=== PATIENT | male | born 1940 | race Hispanic/Latino ===

== ENCOUNTER 2018-10-12 10:38 | Emergency (ER) | payer MEDICARE ==
--- NOTE | 2018-10-12 11:21 | C.PDOC ---
History Of Present Illness Patient is a 78 year old male with PMHx of carpal tunnel disease, HLD, and arthritis here for right leg pain. Patient fell onto his hands about 1 week ago when getting into a cab. Patient believes he tripped over something and denies hitting his head or any loss of consciousness. Patient did not have any leg pain until a few days after the fall when the back of his right leg started to hurt. Patient rates the pain 20/10. Patient takes Oxycodone 20mg q4h which is prescribed by his orthopedic surgeon, Dr. Rogel, for his chronic knee pain. Patient is to get bilateral knee replacements in the future. Patient says the pain in the back of his leg is constant. Patient has tried using a heating pad on the area which helps a little. Time Seen by Provider: 10/12/18 11:05 Chief Complaint (Nursing): Lower Extremity Problem/Injury History/Exam Limitations: no limitations Onset/Duration Of Symptoms: Days, Persistent Current Symptoms Are (Timing): Still Present Severity: Severe Pain Scale Rating Of: 10 - Hip Description Of Injury: Fell, Tripped Currently Unable To: Bear Weight, Straighten, Bend Or Move Past Medical History Vital Signs: Last Vital Signs Temp 98 F 10/12/18 10:49 Pulse 73 10/12/18 10:49 Resp 19 10/12/18 10:49 BP 172/85 H 10/12/18 10:49 Pulse Ox 99 10/12/18 10:49 - Medical History PMH: Arthritis, Hypercholesterolemia Other PMH: carpal tunnel Other Surgeries: left knee surgery 1988 Family History: States: Unknown Family Hx - Social History Hx Tobacco Use: No Hx Alcohol Use: No Hx Substance Use: No - Immunization History Hx Tetanus Toxoid Vaccination: No Hx Influenza Vaccination: No Hx Pneumococcal Vaccination: No Review Of Systems Musculoskeletal: Positive for: Leg Pain Skin: Negative for: Lesions, Bruising Neurological: Positive for: Confusion, Headache, Dizziness Physical Exam - Physical Exam Appears: Non-toxic Head: Atraumatic, Normacephalic Cardiovascular: Rhythm Regular Respiratory: Normal Breath Sounds Gastrointestinal/Abdominal: Normal Exam, Bowel Sounds, Soft, Tenderness Extremity: Tenderness (right back of thigh tenderness ), No Pedal Edema Neurological/Psych: Oriented x3 ED Course And Treatment O2 Sat by Pulse Oximetry: 99 Disposition - Disposition Referrals: Jose Noe MD [Medical Doctor] - Disposition: HOME/ ROUTINE Disposition Time: 11:40 Condition: FAIR Additional Instructions: [place], thank you for letting us take care of you today. Your provider was ED Physician and you were treated for FALL/LEG PAIN. The emergency medical care you received today was directed at your acute symptoms. It may take several days for your symptoms to resolve. Return to the Emergency Department if your symptoms worsen, do not improve, or if you have any other problems. Patient to take Motrin and Tylenol as needed for pain. Patient to alternate icing and heating the area. Please contact your doctor or call one of the physicians/clinics you have been referred to that are listed on the Patient Visit Information form that is i ncluded in your discharge packet. Bring any paperwork you were given at discharge with you along with any medications you are taking to your follow up visit. Our treatment cannot replace ongoing medical care by a primary care provider outside of the emergency department. Thank you for allowing the [facility] team to be part of your care today. Instructions: Muscle Spasms (DC) Forms: GLO (Malaysian) - Clinical Impression Clinical Impression: Muscle spasm - PA / [employer] / Resident Statement MD/DO has reviewed & agrees with the documentation as recorded. MD/DO has examined the patient and agrees with the treatment plan.
[2018-10-12 11:54] VITALS: BP 167/80; PULSE 94; RESP 20; TEMP 98.2
[2018-10-12 12:03] VITALS: O2SAT 99
== END 2018-10-12 12:05 | disposition home or self-care (01) ==
LOC: C.ER 10:38
DX: M62.838 Other muscle spasm (principal); E78.00 Pure hypercholesterolemia, unspecified; M19.90 Unspecified osteoarthritis, unspecified site